=== PATIENT | male | born 1960 ===

== ENCOUNTER 2025-04-24 05:43 | Day surgery (SDC) | payer MEDICARE, BC ==
[2025-04-24] MEDS: Lactated Ringers 1,000 ML IV SCH (06:15)
[2025-04-24] MEDS ORDERED: Propofol 200 MG/20 ML SDV ONE (06:29)
== END 2025-04-24 09:00 | disposition home or self-care (01) ==
LOC: DL.ENDO 05:43
PROVIDERS: ATTEND Internal Medicine Gastroenterology
DX: R10.13 Epigastric pain (principal); E66.09 Other obesity due to excess calories; K21.9 Gastro-esophageal reflux disease without esophagitis; Z68.30 Body mass index [BMI] 30.0-30.9, adult
CPT/HCPCS: 43239; J7120